=== PATIENT | female | born 1960 | race Caucasian/White ===

== ENCOUNTER 2018-12-14 13:33 | Outpatient (CLI) | payer SELFPAY ==
--- NOTE | 2018-12-14 14:02 | XRAY Report ---
Reason: L FOOT PAIN Procedure Date: 12/14/2018 Accession Number: [id number] / [id number] Procedure: XR - Foot 3 View LT CPT Code: FULL RESULT: EXAM: LEFT FOOT RADIOGRAPHY EXAM DATE: 12/14/2018 01:52 PM. CLINICAL HISTORY: Left foot pain. COMPARISON: None. TECHNIQUE: 3 views. FINDINGS: Bones: Diaphyseal fracture of the fifth metatarsal with approximately 2 mm of foreshortening and 1 mm medial displacement of the distal fracture fragment. Joints: Normal. No subluxations. Soft Tissues: Normal. No soft tissue swelling. IMPRESSION: Fracture of the fifth metatarsal diaphysis. RADIA The call report notification system was initiated by Dr. Sourav Jeff at 02:00 PM on 12/14/2018. ADDENDUM: 12/14/18 14:34 The above call report findings were discussed with Gladis Herndon by Dr. Sourav Jeff at 02:34 PM on 12/14/2018.
== END 2018-12-14 13:34 | disposition home or self-care (01) ==
LOC: DI 13:33
PROVIDERS: ATTEND Physician Assistant Medical
DX: S92.352A Displaced fracture of fifth metatarsal bone, left foot, initial encounter for closed fracture (principal)

== ENCOUNTER 2020-08-01 12:23 | Outpatient (CLI) | payer SELFPAY | END 2020-08-01 12:24 | disposition home or self-care (01) | LOC: COV 12:23 | PROVIDERS: ATTEND Family Medicine | DX: R05 Cough (principal); R68.83 Chills (without fever); R07.0 Pain in throat; J34.89 Other specified disorders of nose and nasal sinuses; R06.02 Shortness of breath; Z20.828 Contact with and (suspected) exposure to other viral communicable diseases ==

== ENCOUNTER 2020-08-13 16:36 | Outpatient (CLI) | payer SELFPAY ==
--- NOTE | 2020-08-13 17:09 | XRAY Report ---
PROCEDURE: Chest 2 View X-Ray INDICATIONS: COUGH TECHNIQUE: 2 view(s) of the chest. COMPARISON: None. FINDINGS: Surgical changes and devices: None. Lungs and pleura: Large left pleural effusion with adjacent atelectasis. No pneumothorax. Right lung clear except for mild atelectasis. Mediastinum: Mediastinal contours are normal. Heart size is normal. Bones and chest wall: No suspicious bony abnormalities. Soft tissues appear unremarkable. IMPRESSION: Large left pleural effusion. Due to worsening shortness of breath, the patient was transferred to the emergency department for fur ther workup and treatment. This was personally telephoned and discussed with Dr. Kim at the time o f study dictation on 08/13/2020 at 1707 hours. Reviewed by: Cheo Brown MD on 08/13/2020 5:08 PM PST Approved by: Cheo Brown MD on 08/13/2020 5:08 PM PST Station ID: [id number]
== END 2020-08-13 16:37 | disposition home or self-care (01) ==
LOC: DI 16:36
PROVIDERS: ATTEND Physician Assistant
DX: J90 Pleural effusion, not elsewhere classified (principal)

== ENCOUNTER 2020-08-13 17:05 | Emergency (ER) | payer SELFPAY ==
--- NOTE | 2020-08-13 17:47 | ED Physician Documentation ---
History of Present Illness - Stated complaint Stated Complaint: WEAK - Chief complaint Chief Complaint: General - History obtained from History obtained from: Patient - Additonal information Additional information: 59-year-old previously healthy woman has been feeling ill with cough, shortness of breath, mild myalgias and sore throat and increasing shortness of breath for the last 10 days. She had a coronavirus test done which was negative. She was sent for an x-ray and labs today and was referred here from radiology for a very large pleural effusion. She has never had an x-ray done before. She is a longstanding smoker. Review of Systems Ten Systems: 10 systems reviewed and negative Constitutional: reports: Chills, Myalgias Nose: denies: Rhinorrhea / runny nose Throat: reports: Sore throat Cardiac: denies: Chest pain / pressure Respiratory: reports: Dyspnea, Cough PD PAST MEDICAL HISTORY - Allergies Allergies/Adverse Reactions: Allergies Allergy/AdvReac Type Severity Reaction Status Date / Time No Known Drug Allergies Allergy Verified 08/13/20 17:11 PD ED PE NORMAL - Vitals Vital signs reviewed: Yes - General General: Alert and oriented X 3, No acute distress - HEENT HEENT: PERRL, EOMI - Neck Neck: Supple, no meningeal sign, No bony TTP - Cardiac Cardiac: Other (Mild tachycardia, regular, no murmur) - Respiratory Respiratory: Other (Absent breath sounds on the left, mildly labored breathing) - Abdomen Abdomen: Soft, Non tender - Back Back: No CVA TTP, No spinal TTP - Derm Derm: Normal color, Warm and dry - Extremities Extremities: No edema, No calf tenderness / cord - Neuro Neuro: Alert and oriented X 3, Normal speech Results - Vitals Vitals: Vital Signs - 24 hr 08/13/20 08/13/20 08/13/20 17:11 18:20 21:17 Temperature 36.5 C Heart Rate 113 H 118 H 104 H Respiratory 20 27 H 16 Rate Blood Pressure 142/70 H 146/95 H 140/81 H O2 Saturation 95 94 93 08/13/20 22:30 Temperature Heart Rate 93 Respiratory 18 Rate Blood Pressure 140/99 H O2 Saturation 93 Oxygen O2 Source Nasal cannula - Labs Labs: Laboratory Tests 08/13/20 08/13/20 08/13/20 18:06 18:06 18:06 WBC 28.4 H RBC 4.35 Hgb 12.2 Hct 38.6 MCV 88.7 MCH 28.0 MCHC 31.6 L RDW 13.3 Plt Count 917 H* MPV 10.1 Neut # (Auto) 22.3 H Lymph # (Auto) 2.2 Culberson # (Auto) 2.8 H Eos # (Auto) 0.0 Baso # (Auto) 0.1 Absolute Nucleated RBC 0.00 Nucleated RBC % 0.0 Manual Slide Review Indicated WBC Morphology 2+ SMUDGE CELLS Platelet Estimate INCREASED (>450,000) Platelet Morphology 2+ LARGE PLATELETS RBC Morph Micro Appear NORMAL APPEARANCE PT 16.3 H INR 1.5 H Sodium 136 Potassium 4.8 Chloride 92 L Carbon Dioxide 27 Anion Gap 17.0 H BUN 21 H Creatinine 0.7 Estimated GFR (MDRD) 85 L Glucose 163 H Lactic Acid Calcium 8.9 Total Bilirubin 1.5 H AST 21 ALT 28 Alkaline Phosphatase 227 H B-Natriuretic Peptide Total Protein 8.2 Albumin 2.4 L Globulin 5.8 H Albumin/Globulin Ratio 0.4 L Lipase 24 Nasal Adenovirus (PCR) Nasal B. parapertussis DNA (PCR) Nasal Coronavir 229E PCR Nasal Coronavir HKU1 PCR Nasal Coronavir NL63 PCR Nasal Coronavir OC43 PCR Nasal Enterovir/Rhinovir PCR Nasal Influenza B PCR Nasal Influenza A PCR Nasal Parainfluen 1 PCR Nasal Parainfluen 2 PCR Nasal Parainfluen 3 PCR Nasal Parainfluen 4 PCR Nasal RSV (PCR) Nasal B.pertussis DNA PCR Nasal C.pneumoniae (PCR) Nicho Human Metapneumo PCR Nasal M.pneumoniae (PCR) Nasal SARS-CoV-2 (PCR) Slides for Path Review Indicated 08/13/20 08/13/20 08/13/20 18:06 19:48 19:50 WBC RBC Hgb Hct MCV MCH MCHC RDW Plt Count MPV Neut # (Auto) Lymph # (Auto) Culberson # (Auto) Eos # (Auto) Baso # (Auto) Absolute Nucleated RBC Nucleated RBC % Manual Slide Review WBC Morphology Platelet Estimate Platelet Morphology RBC Morph Micro Appear PT INR Sodium Potassium Chloride Carbon Dioxide Anion Gap BUN Creatinine Estimated GFR (MDRD) Glucose Lactic Acid 2.5 H Calcium Total Bilirubin AST ALT Alkaline Phosphatase B-Natriuretic Peptide 205 H Total Protein Albumin Globulin Albumin/Globulin Ratio Lipase Nasal Adenovirus (PCR) NOT DETECTED Nasal B. parapertussis DNA (PCR) NOT DETECTED Nasal Coronavir 229E PCR NOT DETECTED Nasal Coronavir HKU1 PCR NOT DETECTED Nasal Coronavir NL63 PCR NOT DETECTED Nasal Coronavir OC43 PCR NOT DETECTED Nasal Enterovir/Rhinovir PCR NOT DETECTED Nasal Influenza B PCR NOT DETECTED Nasal Influenza A PCR NOT DETECTED Nasal Parainfluen 1 PCR NOT DETECTED Nasal Parainfluen 2 PCR NOT DETECTED Nasal Parainfluen 3 PCR NOT DETECTED Nasal Parainfluen 4 PCR NOT DETECTED Nasal RSV (PCR) NOT DETECTED Nasal B.pertussis DNA PCR NOT DETECTED Nasal C.pneumoniae (PCR) NOT DETECTED Nicho Human Metapneumo PCR NOT DETECTED Nasal M.pneumoniae (PCR) NOT DETECTED Nasal SARS-CoV-2 (PCR) NOT DETECTED Slides for Path Review - Rads (name of study) CT of the chest with IV contrast Radiology: EMP read contemporaneously (Large loculated peripherally enhancing fluid collection suggestive of a subpulmonic empyema with an air-fluid level and small foci of gas may reflect infection or an associated bronchopleural fistula. Associated left basilar atelectasis or consolidation. No discrete mass identified.) PD MEDICAL DECISION MAKING - ED course ED course: [employer] respiratory panel ordered to rapidly test specifically for COVID-19 in this patient who is expected to be hospitalized 59-year-old woman with progressive shortness of breath, coughing and myalgias etc. Found to have empyema on CT. Call initially to [facility] to talk with cardiothoracic surgery, we were notified a little after 8 PM that they were f ull. Call placed to [facility]. Notified shortly thereafter that [facility] was also full. The [employer] will call around to see what facilities have cardiothoracic surgery available. Given the potential delays I did go ahead and start antibiotics. I had been holding off thinking that cardiothoracic surgery might want to wait to sample the empyema, But given the white count and tachycardia I think we should go ahead and start antibiotics while waiting for consultation. considering the case. care to overnight ED MD pending call back from . Departure - Departure Disposition: 02 Transfer Acute Care Hosp Clinical Impression: Empyema, Thrombocytosis Condition: Serious
[2020-08-13 18:31] LABS: BASOPHILS # (AUTO) 0.1 10^3/uL (0.0-0.1); BASOPHILS % (AUTO) 0.5 %; HGB - HEMOGLOBIN 12.2 g/dL (12.0-16.0); LYMPHOCYTES # (AUTO) 2.2 10^3/uL (1.5-3.5); LYMPHOCYTES % (AUTO) 7.9 %; MEAN CORPUSCULAR HGB CONC 31.6 g/dL (32.0-36.0); MEAN CORPUSCULAR VOLUME 88.7 fL (81.0-99.0); MEAN PLATELET VOLUME 10.1 fL (7.9-10.8); MONOCYTES # (AUTO) 2.8 10^3/uL (0.0-1.0); MONOCYTES % (AUTO) 9.8 %; NEUTROPHILS # (AUTO) 22.3 10^3/uL (1.5-6.6); NEUTROPHILS % (AUTO) 78.4 %; RED BLOOD COUNT 4.35 10^6/uL (4.20-5.40); RED CELL DISTRIBUTION WIDTH 13.3 % (12.0-15.0); WHITE BLOOD COUNT 28.4 x10^3/uL (4.8-10.8)
[2020-08-13 18:34] LABS: PLT - PLATELET COUNT 917 10^3/uL (130-450)
[2020-08-13] MEDS ORDERED: IOVERSOL 320 100 ML VIAL IVP ONE ×2 (18:35→19:14)
[2020-08-13 18:43] LABS: ALBUMIN 2.4 g/dL (3.2-5.5); ALBUMIN/GLOBULIN RATIO 0.4 (1.0-2.2); BILIRUBIN,TOTAL 1.5 mg/dL (0.2-1.0); CALCIUM 8.9 mg/dL (8.5-10.3); CREATININE 0.7 mg/dL (0.4-1.0); INR 1.5 (0.8-1.2); PT - PROTHROMBIN TIME 16.3 secs (9.9-12.6); TOTAL PROTEIN 8.2 g/dL (6.7-8.2)
[2020-08-13 19:09] LABS: PLATELET ESTIMATE, MANUAL INCREASED (>450,000) (NORMAL); PLATELET MORPHOLOGY 2+ LARGE PLATELETS (NORMAL); RBC MORPHOLOGY (MULTIPLE) NORMAL APPEARANCE (NORMAL)
[2020-08-13] MEDS ORDERED: MORPHINE 10 MG/ML VIAL IVP STA ×2 (19:32→21:50)
--- NOTE | 2020-08-13 19:34 | CT Report ---
PROCEDURE: CHEST W INDICATIONS: L pleural effusion, smoker, dyspnea CONTRAST: IV CONTRAST: Optiray 320 ml: 100 PO CONTRAST: *NO PO CONTRAST TECHNIQUE: After the administration of intravenous contrast, 5 mm thick sections acquired from the pulmonary api julisa to the posterior costophrenic angles. 7 mm thick coronal MIP reformats were acquired. For radia tion dose reduction, the following was used: automated exposure control, adjustment of mA and/or kV according to patient size. COMPARISON: Chest x-ray 08/13/2020. FINDINGS: Image quality: Excellent. Lungs and pleura: There is a large loculated peripherally enhancing left subpulmonic fluid collectio n measuring approximately 18.7 x 12.0 x 21.3 cm. There is an internal air-fluid level within the mason ection with additional scattered small foci of gas. There is extensive associated mass effect on the aerated left lung with compressive atelectasis or consolidation in the lung bases. No right pleural e ffusion. Right lung demonstrates mild linear atelectasis or scarring. The trachea and proximal airway s appear patent. There is bronchial wall thickening along the left lower lobe bronchus. No discrete m ass identified. Mediastinum: There is mild rightward shift of the mediastinum secondary to mass effect from the larg e left fluid collection. Heart size is normal. No pericardial effusion. No mediastinal or hilar dominic nopathy by size criteria. Thoracic aorta and central pulmonary arteries are normal in size. Esophag us is normal in caliber. No hiatal hernia. Bones and chest wall: No suspicious bony lesions. No vertebral body compression fractures. No axil aditya or supraclavicular adenopathy by size criteria. Abdomen: Visualized upper abdomen demonstrates a cyst within the visualized liver. There is thickeni ng of the adrenal glands bilaterally without a discrete nodule. IMPRESSION: 1. Large loculated peripherally enhancing fluid collection suggestive of a subpulmonic empyema. Air-f luid level within the collection as well as additional small foci of gas may reflect infection from a gas-forming organism or an associated bronchopleural fistula. 2. Associated left basilar atelectasis or consolidation. No discrete obstructing mass identified. Findings discussed to Dr. Vergara on 08/13/2020 at 7:25 PM. Reviewed by: Jagdish Perez MD on 08/13/2020 7:32 PM PST Approved by: Jagdish Perez MD on 08/13/2020 7:32 PM [facility] [place] Station ID: [id number]
[2020-08-13] MEDS ORDERED: AMPICILLIN/SULBACTAM 3 GM in SODIUM CHLORIDE 0.9% MINIBAG 100 ML IV STA (20:15)
[2020-08-13] MEDS ORDERED: SODIUM CHLORIDE 0.9% 1,000 ML IV STA ×2 (20:15→23:02)
[2020-08-13] MEDS ORDERED: VANCOMYCIN INJ 1.5 GM in SODIUM CHLORIDE 0.9% 500 ML IV STA (20:15)
[2020-08-13] MEDS ORDERED: VANCOMYCIN 1 GM VIAL ONE (20:32)
[2020-08-13 20:58] LABS: C. PNEUMONIAE- RESP PCR PANEL NOT DETECTED
[2020-08-13 22:36] VITALS: BP 140/99
--- NOTE | 2020-08-14 00:09 | ED Physician Documentation ---
ED Addendum - Addendum Addendum: 08/14/20 00:05 Received sign out from Dr. Vergara. I discussed the case with Dr. Mcleod (cardiothoracic surgery at ) accepts patient for transfer to . I informed patient of this and told her, as per Dr. Mcleod's request that surgery would be likely but not until tomorrow (as opposed to going directly to surgery at on arrival or overnight). Patient is in NAD, smiling, and expresses understanding of this plan.
== END 2020-08-14 00:05 | disposition short-term general hospital (02) ==
LOC: ED 17:05
DX: J86.9 Pyothorax without fistula (principal); F17.200 Nicotine dependence, unspecified, uncomplicated; D47.3 Essential (hemorrhagic) thrombocythemia; D72.829 Elevated white blood cell count, unspecified; R00.0 Tachycardia, unspecified; Z20.822 Contact with and (suspected) exposure to COVID-19
CPT/HCPCS: 0202U; 71260; 80053; 83605; 83690; 83880; 85025; 85610; 87040; 96365; 96366; 96367; 96375; 96376; 99284; 99285; J3370; Q9967

== ENCOUNTER 2020-08-14 00:06 | Outpatient (CLI) | payer SELFPAY ==
--- OUTSIDE RECORDS SUMMARY | 2020-08-22 00:27 | EXTERNAL MEDICAL SUMMARY RPT | Continuity of Care Document ---
:1960 Demographics Phone Unavailable Preferred Language Unknown Marital Status Unknown Anabaptist Affiliation Unknown Race Unknown Ethnic Group Unknown Author Organization [facility] Address [address] [place] [address] Phone Care Team Providers Name Role Phone Elias Unavailable Unavailable Problems date description facility 2018-12-14 13:33 DISP FX OF FIFTH METATARSAL BONE, [facility] LEFT FOOT, INIT 2020-08-01 12:23 OTHER SPECIFIED DISORDERS OF NOSE [facility] AND NASAL SINUSES 2020-08-01 12:23 [facility] 2020-08-01 12:23 SHORTNESS OF BREATH [facility] tam Center 2020-08-01 12:23 PAIN IN THROAT [facility] Medic [facility] Center 2020-08-01 12:23 CHILLS (WITHOUT FEVER) [facility] edical Center 2020-08-01 12:23 CONTACT W AND EXPOSURE TO OTH [facility] VIRAL COMMUNICABLE DISEASES 2020-08-13 16:36 PLEURAL EFFUSION, NOT ELSEWHERE [facility] CLASSIFIED 2020-08-13 16:36 COUGH [facility] 2020-08-13 16:36 DYSPNEA, UNSPECIFIED [facility] Med ical Center Allergies date description facility OTHER [facility] NO ALLERGY INFORMATION AVAILABLE [facility] HYDROXYZINE [facility]CL [facility] MORPHINE [facility] CODEINE [facility] ANIMAL DANDER [facility] ALMOND [facility] PROCAINE [facility] MEPERIDINE [facility] CORTISONE [facility] PINEAPPLE [facility] BANANA [facility] LATEX [facility] AVOCADO [facility] HYDROCODONE-ACETAMINOPHEN [facility] OXYCODONE-ASPIRIN [facility] ADHESIVE TAPE-SILICONES [facility] No Known Drug Allergies [facility] CLAVULANIC ACID [facility] Medic [facility] [employer] CLINDAMYCIN [facility] [employer] AMOXICILLIN-POT CLAVULANATE [facility] SULFA ANTIBIOTICS [facility] PENICILLINS [facility] [employer] AVOCADO [facility] Medic [facility] [employer] FISH-DERIVED PRODUCTS [facility] dical Center IODIDES [facility] IODINE [facility] CLINDAMYCIN [facility] No Known Drug Allergies [facility] Results Social History date description facility [id number]
== END 2020-08-14 00:07 | disposition short-term general hospital (02) ==
LOC: EMS 00:06
PROVIDERS: ATTEND Surgery
DX: J86.9 Pyothorax without fistula (principal)
CPT/HCPCS: A0425; A0426